=== PATIENT | female | born 1975 | race Caucasian/White ===

== ENCOUNTER 2020-07-31 12:23 | Inpatient (IN) | payer BC, SELFPAY ==
--- NOTE | 2020-07-30 21:20 | PC.NURSE ---
This patient, Wendy Lewis, was admitted to Medical Room 246-01. Patient/family oriented to hospital policies and general routines including ID bracelet, bed and alarms, visiting hours, pain management, procedures, bathroom and other care routines, personal items, smoking policy, room service/diet, and visiting hours. Information on how to activate the Rapid Response Team has been discussed. Patient/Family are encouraged to report perceived risks to care and to ask questions if they do not understand what they are told or what they should do.
[2020-07-30 21:58] VITALS: BMI 23.9
[2020-07-30 22:00] VITALS: BP 114/54; PULSE 88; RESP 16; TEMP 37; O2SAT 97
[2020-07-30] MEDS: IBUPROFEN 600 MG TABLET PO (22:28)
[2020-07-30] MEDS: ONDANSETRON HCL ODT 4 MG TABLET PO (22:31)
[2020-07-30 22:46] LABS: Basophils Absolute Auto 0.1 K/mm3 (0.0-0.1); Basophils Percent Auto 0.3 % (0.2-1.2); Eosinophils Absolute Auto 0.1 K/mm3 (0-0.3); Eosinophils Percent Auto 0.8 % (0-4.4); Hematocrit 33.4 % (37.0-47.0); Hemoglobin 11.2 g/dL (12.0-15.0); Immature Granulocyte Absolute 0.13 K/mm3 (0.00-0.031); Immature Granulocyte Percent A 0.8 % (0-0.5); Lymphocytes Absolute Auto 1.04 K/mm3 (0.9-3.2); Lymphocytes Percent Auto 6.8 % (18.3-44.2); Mean Corpuscular HGB Conc 33.5 g/dl (32-36); Mean Corpuscular Volume 92.5 fl (80-100); Mean Platelet Volume 10.3 fl (7.4-10.4); Monocytes Absolute Auto 1.2 K/mm3 (0.1-0.6); Monocytes Percent Auto 7.6 % (2.6-8.5); Neutrophils Absolute Auto 12.9 K/mm3 (1.3-6.7); Neutrophils Percent Auto 83.7 % (45.5-73.1); Platelet Count Result 303 k/mm3 (150-375); Red Blood Count 3.61 M/mm3 (4.2-5.4); Red Cell Distribution Width 12.9 % (11.5-14.5); White Blood Count 15.4 K/mm3 (4.5-10.0)
[2020-07-30 22:57] LABS: Anion Gap 8 mmol/L (8-16); Blood Urea Nitrogen 5 mg/dL (7-17); Calcium 8.1 mg/dL (8.4-10.2); Carbon Dioxide 30 mmol/L (22-30); Chloride 98 mmol/L (98-107); Estimated CRCL calculation 118 ml/min; Estimated Glomerular Filt Rate > 60; Glucose 109 mg/dL (65-105); INR 1.3; Potassium 2.9 mmol/L (3.4-5.0); Prothrombin Time 16.4 Seconds (11.1-14.7); Sodium 136 mmol/L (137-145)
[2020-07-30 22:58] LABS: Partial Thromboplastin Time 33.2 SECONDS (22.3-36.8)
[2020-07-31 06:00] VITALS: BP 94/53; PULSE 92; RESP 18; TEMP 36.9; O2SAT 97
[2020-07-31] MEDS: SIMETHICONE 80 MG TAB.CHEW PO (08:33)
[2020-07-31] MEDS: POTASSIUM CHLORIDE 20 MEQ TABLET.ER PO ×2 (08:42→16:55)
--- NOTE | 2020-07-31 12:06 | PM.IMHP ---
H&P: HPI History of Present Illness Date/Time: 07/31/20 12:06 Chief Complaint: Abdominal pain Narrative: Wendy Lewis is a 45 year old female s/p robotic assisted total laparoscopic hysterectomy on 07/23 at [facility]. Patient reported fevers, abdominal pain, and constipation. US was done on outpatient basis which showed a 8cm hemoatoma. Patient was placed on PO flagyl and augmentin. She continued to be febrile at home and developed nausea and vomiting. She was evaluated in the [facility] ER on 07/30. CT showed 8x8cm pelvic abscess vs hematoma. Due to no IR capabilities available at [place], she was transferred to [place] should IR intervention arise as a need in her care. She reports abdominal cramping pain that is associated with passing flatus and with bowel movements. Her bowel movements are described as small pellets. Passing flatus, but it is associated with pain. She reports that her post operative pain has resolved, and was no longer requiring pain medications at home. Nausea is slightly improved this morning. She is tolerating diet, but has decreased appetite. Review of Systems Constitutional: Constitutional: Reports fatigue and Reports lethargy Eyes: Eyes: Reports no additional eye complaints ENT: Reports system reviewed and no additional complaints, except as documented Cardiovascular: Cardiovascular: Reports no additional cardiovascular complaints Respiratory: Respiratory: Reports no additional respiratory complaints Gastrointestinal: Gastrointestinal: Reports as per HPI Genitourinary: Genitourinary: Reports no additional female genitourinary complaints Musculoskeletal: Musculoskeletal: Reports no additional musculoskeletal complaints Integumentary/Breasts: Skin/Breast: Reports system reviewed and no additional complaints, except as docu Neurologic: Reports system reviewed and no additional complaints, except as documented Psychiatric: Psychiatric: Reports no additional psychiatric complaints Endocrine: Endocrine: Reports no additional endocrine complaints Hematologic/Lymphatic: Hematologic/Lymphatic: Reports no additional hematologic/lymphatic complaints Allergic/Immunologic: Allergic/Immunologic: Reports no additional allergic/immunologic complaints [facility] Past Medical History Medical History (Updated 07/31/20 @ 12:20 by Marleny Doll DO) Mild intermittent asthma Surgical History Surgical History (Updated 07/31/20 @ 12:15 by Marleny Doll DO) H/O: hysterectomy History of 3 sections History of cholecystectomy Family History Family History (Updated 07/30/20 @ 21:52 by Brenda M. Hoffner, RN) Grandparent Chronic obstructive pulmonary disease Social History Social History Smoking packs per day: 1 Smoking cigarettes per day: 20.0 Years smoked: 20 Smoking pack-years: 20.00 Smoking status: Former smoker Tobacco type: cigarettes Alcohol intake: current Substance use: never Spiritual care concerns: No Meds Home Medications and Allergies Home Medications Medication Instructions Recorded Confirmed Type amoxicillin-pot clavulanate 1 tablet PO Q12H 07/30/20 07/30/20 History metronidazole 500 mg PO BID 07/30/20 07/30/20 History Allergies Allergy/AdvReac Type Severity Reaction Status Date / Time No Known Allergies Allergy Verified 07/30/20 21:52 Vital Signs Vital Signs - 24 hr 07/30/20 22:00 07/31/20 06:00 Temperature 37.0 C 36.9 C Pulse Rate 88 92 Respiratory Rate 16 18 Blood Pressure 114/54 L 94/53 L Pulse Oximetry 97 97 Exam Const: General: cooperative, no acute distress, well developed, alert, awake, Physically active, tired appearing and uncomfortable Nutritional Appearance: average body habitus Orientation/consciousness: oriented to person, oriented to place, oriented to time and patient oriented x3 HENMT: Head: normocephalic and atraumatic Eyes: General: appearance normal, both eyes and all related structure
--- NOTE | 2020-07-31 12:22 | WPDHPUPDATE1 ---
History and Physical Update Update Date/Time: 07/31/20 12:22 History and Physical has been reviewed, including an updated exam of the patient. There are NO changes in the patient's condition. Risks, benefits, and alternatives have been discussed and questions answered. Patient agrees to proceed with procedure.
--- OUTSIDE RECORDS SUMMARY | 2020-07-31 12:33 | XMS_ITS ---
:1975 Author Care Team Providers Name Role Phone KATHY KELLEY Primary Care Provider [phone] Allergies Code Code System Name Reaction Severity Status Onset NKDA ? Medications Name Status Start Date Stop Date ? ? albuterol sulfate HFA 90 mcg/actuation Active ? Not available aerosol inhaler amoxicillin 500 mg capsule Completed ? 05/07 Augmentin 875 mg-125 mg tablet Active ? N ot available Take 1 tablet every 12 hours by oral route for 10 days. azithromycin 250 mg tablet Completed ? 01/19 benzonatate 100 mg capsule Completed ? 05/07 Ciprodex 0.3 %-0.1 % ear drops,suspension Completed ? 05/18/2017 INSTILL 4 DROPS IN BOTH EARS BID. SHAKE WELL BEFORE USING cyclobenzaprine 5 mg tablet Completed ? 09/2019 Dulcolax (bisacodyl) 10 mg rectal suppository Active ? Not available Insert 1 suppository every day by rectal route as needed for 7 days. Flagyl 500 mg tablet Active ? Not availab le Take 1 tablet twice a day by oral route for 10 days. fluticasone propionate 50 mcg/actuation nasal spray,suspension C ompleted ? 05/18/2017 INHALE 2 SPRAYS IN EACH NOSTRIL ONCE DAILY ibuprofen 600 mg tablet Completed ? 05/08/20 20 Macrobid 100 mg capsule Active ? Not avai lable Take 1 capsule every 12 hours by oral route for 7 days. medroxyprogesterone 5 mg tablet Completed ? 05/08/2020 TAKE 1 TABLET BY MOUTH EVERY DAY metaxalone 800 mg tablet Completed ? 020 Take 1 tablet 3 times a day by oral route as needed.
--- OUTSIDE RECORDS SUMMARY | 2020-07-31 12:33 | XMS_ITS | Encounter Summary ---
:1975 Author Care Team Providers Name Role Phone Devan Mclean Lashae Primary Care Provider [phone] Reason for Visit well woman exam wwe/ no pap/ss Assessment and Plan 1. Gynecologic examination 2. Lump in left breast ? MAMMO, diagnostic, digital , bilateral - left breast lump on exam ? US, breast, unilateral Discussion Note: None recorded.Patient educational handouts: No information available. Plan of Care Reminders Provider Appointments Post Op 08/10/2020 Josemanuel Echavarria, 1:50PM MD ? Mine Surveyor [facility] on or around Josemanuel Echavarria, 07/07/2021 MD Lab None ? ? recorded. Referral None ? ? recorded. Procedures None ? ? recorded. Surgeries None ? ? recorded. Imaging MAMMO, 07/07/2020 [facility] [facility], Digital, [facility] (One Call Scheduling) ? US, Breast, 07/07/2020 [place] [facility] ([facility] Call Scheduling) Medications Name Start Date ? ? albu
--- OUTSIDE RECORDS SUMMARY | 2020-07-31 12:33 | XMS_ITS | Encounter Summary ---
:1975 Author Care Team Providers Name Role Phone Devan Bhardwaj Primary Care Provider [phone] Reason for Visit POST-OP 2 weeks post op 04/23/2020 Ablation/ ss Assessment and Plan 1. Postoperative care Discussion Note: None recorded.Patient educational handouts: No information available. Plan of Care Reminders Provider Appointments Post Op 08/10/2020 Josemanuel Echavarria, 1:50PM MD ? Manager Hospice [facility] on or around Josemanuel Echavarria, 07/07/2021 Lab None ? ? recorded. Referral None ? ? recorded. Procedures None ? ? recorded. Surgeries None ? ? recorded. Imaging None ? ? recorded. Medications Name Start Date ? ? albuterol sulfate HFA 90 mcg/actuation aerosol inhaler ? Augmentin 875 mg-125 mg tablet ? Take 1 tablet every 12 hours by oral route for 10 day s. Dulcolax (bisacodyl) 10 mg rectal suppository ? Insert 1 suppository every day by rectal route as nee ded for 7 days. Flagyl 500 mg tablet ? Take 1 tablet twice a day by oral route for 10 days. Macrobid 100 mg capsule ? Take 1 capsule every 12 hours by oral route for 7 day s. Medications Administered None recorded. Vitals Height Weight BMI Blood Pressure 5 ft 3 in 145 lbs 25.7 kg/m2 110/62 mm[Hg] Results
--- OUTSIDE RECORDS SUMMARY | 2020-07-31 12:33 | XMS_ITS ---
:1975 Author Care Team Providers Name Role Phone [facility] Primary Care Provider Unavailable Allergies None recorded. Medications Name Status Start Date Stop Date ? ? albuterol sulfate HFA 90 mcg/actuation Active ? Not available aerosol inhaler azithromycin 250 mg tablet Active ? Not a vailable benzonatate 100 mg capsule Active ? Not a vailable cyclobenzaprine 5 mg tablet Active ? Not available medroxyprogesterone 5 mg tablet Active ? Not available oxycodone-acetaminophen 5 mg-325 mg tablet Active ? Not available promethazine 6.25 mg/5 mL oral syrup Active ? Not available Problems None recorded. Procedures None recorded. Results Lab Results Date Name Specimen Result Interpretation Description Value Range Status Address ? 02/10/2020 COVID-19 RNA ? Sars - negative mL ? F inal [place] (SARS-CoV-2), QL, Cov - 2 Regional edge setter-PCR, PCR (Lab): [address], Specimen [place] ? ? ? Covidc ? ? Final [facility] (Lab): [address], [place] ? ? ? Covidc ? ? Final [facility] (Lab): [address],
--- OUTSIDE RECORDS SUMMARY | 2020-07-31 12:33 | XMS_ITS | Encounter Summary ---
:1975 Author Care Team Providers Name Role Phone Devan Bhardwaj Primary Care Provider [phone] Reason for Visit POST-OP 2 weeks post op 04/23/2020 Ablation/ ss Assessment and Plan 1. Postoperative care Discussion Note: None recorded.Patient educational handouts: No information available. Plan of Care Reminders Provider Appointments Post Op 08/10/2020 Josemanuel Echavarria, 1:50PM MD ? Inside Sales Manager [facility] on or around Josemanuel Echavarria, 07/07/2021 [...]
--- OUTSIDE RECORDS SUMMARY | 2020-07-31 12:33 | XMS_ITS | Encounter Summary ---
:1975 Author Care Team Providers Name Role Phone Devan Mclean Lashae Primary Care Provider [phone] Reason for Visit rn gyn problem ablation done on 05/08/2020 cycle is hea vier then last month with clots , severe cramping / ss Assessment and Plan 1. Uterine leiomyoma ? total laparoscopic hystere ctomy, robotic assisted (SURG) Discussion Note Will attempt to precert hysterectom y. Also discussed possible open/bladder issues due to prior section x3. Patient educational handouts: No information available. Plan of Care Reminders Provider Appointments Post Op 08/10/2020 Josemanuel 1:50PM MD [place] ? Pinsetter Mechanic Helper [facility] on or around Josemanuel 07/07/2021 MD [place] Lab None recorded. ? ? Referral None recorded. ? ? Procedures None recorded. ? ? Surgeries Total 07/23/2020 [place] [facility] Hysterectomy, Robotic Ctr (Pre-S creen) Assisted (SURG) Imaging None recorded. ? ? Medications Name Start Date ? ? albuterol sulfate HFA 90 mcg/actuation aerosol inhaler ? Augmentin 875 mg-125 mg tablet ? Take 1 tablet every 12 hours by oral route for 10 day s.
--- OUTSIDE RECORDS SUMMARY | 2020-07-31 12:33 | XMS_ITS ---
:1975 Author Care Team Providers Name Role Phone KATHY KELLEY Primary Care Provider [phone] Allergies Code Code System Name Reaction Severity [...]
--- OUTSIDE RECORDS SUMMARY | 2020-07-31 12:33 | XMS_ITS | Encounter Summary ---
:1975 Author Care Team Providers Name Role Phone Devan Mclean Lashae Primary Care Provider [phone] Reason for Visit well woman exam wwe/ no pap/ss Assessment and Plan 1. Gynecologic examination 2. Lump in left breast ? MAMMO, diagnostic, digital , bilateral - left breast lump on exam ? US, breast, unilateral Discussion Note: None recorded.Patient educational handouts: No information available. Plan of Care Reminders Provider Appointments Post Op 08/10/2020 Josemanuel Echavarria, 1:50PM MD ? [employer] Sawyer [facility] on or around Josemanuel Echavarria, 07/07/2021 MD Lab None ? ? recorded. Referral None ? ? recorded. Procedures None ? ? recorded. Surgeries None ? ? recorded. Imaging MAMMO, 07/07/2020 [facility] [facility], Digital, [facility] (One Call Scheduling) ? US, Breast, 07/07/2020 [place] [facility] ([facility] Call Scheduling) Medications Name Start Date ? ? albu
--- OUTSIDE RECORDS SUMMARY | 2020-07-31 12:33 | XMS_ITS | Encounter Summary ---
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 Certified Master Safe Technician [facility] on or around Josemanuel 07/07/2021 MD [place] Lab None recorded. ? ? Referral None recorded. ? ? Procedures None recorded. ? ? Surgeries Total 07/23/2020 [place] [facility] Hysterectomy, Robotic Ctr (Pre-S creen) Assisted (SURG) Imaging None recorded. ? ? Medications Name Start Date ? ? albuterol sulfate HFA 90 mcg/actuation aerosol inhaler ? Augmentin 875 mg-125 mg tablet ? Take 1 tablet every 12 hours by oral route for 10 day s.
--- OUTSIDE RECORDS SUMMARY | 2020-07-31 12:33 | XMS_ITS ---
[...] [place] (SARS-CoV-2), QL, Cov - 2 [facility] algebra teacher-PCR, PCR (Lab): [address], [place]imen [place] ? ? ? Covidc ? ? Final [facility] (Lab): [address], [place] ? ? ? Covidc ? ? Final [facility] (Lab): [address],
[2020-07-31] MEDS: DOCUSATE SODIUM 100 MG CAPSULE PO ×2 (13:05→20:15)
[2020-07-31 14:42] VITALS: BP 112/53; PULSE 93; RESP 20; TEMP 37.1; O2SAT 98
[2020-07-31] MEDS: IBUPROFEN 600 MG TABLET PO (16:54)
[2020-07-31 20:00] VITALS: BP 97/47; PULSE 82; RESP 18; TEMP 36.9; O2SAT 98
[2020-08-01 04:00] VITALS: BP 96/54; PULSE 93; RESP 20; TEMP 37; O2SAT 98
[2020-08-01 05:15] LABS: Basophils Absolute Auto 0.1 K/mm3 (0.0-0.1); Basophils Percent Auto 0.4 % (0.2-1.2); Eosinophils Absolute Auto 0.3 K/mm3 (0-0.3); Eosinophils Percent Auto 1.6 % (0-4.4); Hematocrit 32.6 % (37.0-47.0); Hemoglobin 10.9 g/dL (12.0-15.0); Immature Granulocyte Absolute 0.19 K/mm3 (0.00-0.031); Immature Granulocyte Percent A 1.1 % (0-0.5); Lymphocytes Percent Auto 6.9 % (18.3-44.2); Mean Corpuscular HGB Conc 33.4 g/dl (32-36); Mean Corpuscular Hemoglobin 30.4 pg (26-34); Mean Corpuscular Volume 90.8 fl (80-100); Mean Platelet Volume 10.2 fl (7.4-10.4); Monocytes Percent Auto 5.9 % (2.6-8.5); Neutrophils Absolute Auto 14.6 K/mm3 (1.3-6.7); Neutrophils Percent Auto 84.1 % (45.5-73.1); Platelet Count Result 323 k/mm3 (150-375); Red Blood Count 3.59 M/mm3 (4.2-5.4); Red Cell Distribution Width 12.9 % (11.5-14.5); White Blood Count 17.4 K/mm3 (4.5-10.0)
[2020-08-01 05:33] LABS: Anion Gap 9 mmol/L (8-16); Blood Urea Nitrogen 5 mg/dL (7-17); Calcium 8.2 mg/dL (8.4-10.2); Carbon Dioxide 27 mmol/L (22-30); Chloride 99 mmol/L (98-107); Estimated CRCL calculation 118 ml/min; Estimated Glomerular Filt Rate > 60; Glucose 122 mg/dL (65-105); Sodium 135 mmol/L (137-145)
[2020-08-01] MEDS: IBUPROFEN 600 MG TABLET PO ×2 (05:51→16:27)
--- NOTE | 2020-08-01 08:57 | PM.GYNPNOP ---
PRODUCTION REPRODUCTION MANAGER - A/P Assessment and plan (1) Abscess, intra-abdominal, postoperative: Code(s): T81.43XA - Infection following a procedure, organ and space surgical site, initial encounter Status: Acute Assessment and Plan: Continue Zosyn Outside CT to be scanned into EMR Patient is clinically improved today, significant change from yesterday. If she continues to be stable/improve, then can consider discharge tomorrow on PO antibiotics. Possible IR drainage on Monday if condition worsens (2) Constipation: Code(s): K59.00 - Constipation, unspecified Status: Acute Assessment and Plan: Improved today Stool softener, suppository, and enema PRN (3) Hypokalemia: Code(s): E87.6 - Hypokalemia Status: Acute Assessment and Plan: Replete wit KCl PO. Tolerating regular diet. Is no longer nauseous and is able to tolerate a more substantial diet. Time Spent With Patient Time: Total time spent is greater than 50% in coordination of care (as documented) at patient's floor/unit and/or counseling patient: Time with patient: 15 - 25 minutes PRODUCTION REPRODUCTION MANAGER- PN:Subj Post-Op Subjective Date/time seen: 08/01/20 08:57 Patient reports feeling much better today. She states that she has had some small bowel movements, the pain she was having with the bowel movements is now improved/resolved. She is no longer nauseous and is able to eat more substantial food. Drinking plenty of fluids. No complaints this morning. Exam Const: General: cooperative, healthy appearing, comfortable, no acute distress, well developed, alert, awake and Physically active Nutritional Appearance: average body habitus Orientation/consciousness: oriented to person, oriented to place, oriented to time and patient oriented x3 HENMT: Head: normocephalic and atraumatic Eyes: General: appearance normal, both eyes and all related structures Resp: Effort & Inspection: normal respiratory effort, able to speak in complete sentences and audible wheezes Cardio: Rhythm: regular rhythm GI: Inspection: normal to inspection GI Palp: No abdominal tenderness and Yes Soft to palpation : General: Yes deferred Skin: General skin exam: normal color Neuro: General: oriented to person, oriented to place, oriented to time and patient oriented x3 Cognition (Neuro): normal cognition Speech: normal speech Extrem: General: normal to inspection Psych: Appearance: grossly normal Mental Status: mental status grossly normal Speech and movement: Normal speech and movement present Affect: normal affect Attitude: cooperative Thought process: Normal thought process present Insight: Good insight present (Psych) Judgement: Good judgement present (Psych) PRODUCTION REPRODUCTION MANAGER - PN: Obj Data Vital Signs Vital Signs: Vital Signs - 24 hr 07/31/20 14:42 07/31/20 20:00 08/01/20 04:00 Temperature 37.1 C 36.9 C 37.0 C Pulse Rate 93 82 93 Respiratory Rate 18 20 Blood Pressure 112/53 L 97/47 L 96/54 L Pulse Oximetry 98 98 98 Intake/Output Intake/Output: Intake & Output 07/29/20 07/30/20 07/31/20 08/01/20 23:59 23:59 23:59 23:59 Intake Total 2390 1560 Output Total 2600 950 Balance -210 610 Meds/Results Medications: Active Medications Generic Name Dose Route Start Last Admin Trade Name Freq PRN Reason Stop Dose Admin Acetaminophen 650 mg 07/30/20 22:11 Acetaminophen 325 Mg Tablet PO Q6H PRN Fever Hydrocodone Bitart/Acetaminophen 1 tab 07/30/20 22:05 Hydrocodone/Acetaminophen (*Crx) 5-325 Mg Tablet PO Q6H PRN Pain Rated 6 or Greater Bisacodyl 10 mg 07/31/20 10:48 Bisacodyl 10 Mg Suppository RECTAL DAILY PRN Constipation Docusate Sodium 100 mg 07/31/20 09:00 07/31/20 20:15 Docusate Sodium 100 Mg Capsule PO 100 mg Q12HR BELKYS Administration Piperacillin/Tazobactam/Dextrose 3.375 gm in 50 mls @ 100 mls/hr 07/31/20 06:00 08/01/20 06:17 Zosyn 3.375 Gm/D5w 50ml Pm IVPB Infused Q6H BELKYS
[2020-08-01] MEDS: DOCUSATE SODIUM 100 MG CAPSULE PO (10:07)
[2020-08-01] MEDS: POTASSIUM CHLORIDE 20 MEQ TABLET.ER PO ×2 (10:07→16:28)
[2020-08-01] MEDS: POTASSIUM CHLORIDE 20 MEQ TABLET PO (10:07)
[2020-08-01 14:00] VITALS: BP 110/56; PULSE 98; RESP 16; TEMP 37.2; O2SAT 100
[2020-08-01 20:00] VITALS: BP 107/51; PULSE 89; RESP 18; TEMP 36.7; O2SAT 97
[2020-08-02 04:00] VITALS: BP 109/54; PULSE 103; RESP 18; TEMP 36.8; O2SAT 100
[2020-08-02] MEDS: IBUPROFEN 600 MG TABLET PO (05:52)
[2020-08-02] MEDS: POTASSIUM CHLORIDE 20 MEQ TABLET.ER PO (08:21)
[2020-08-02 08:41] LABS: Basophils Percent Auto 0.2 % (0.2-1.2); Eosinophils Absolute Auto 0.2 K/mm3 (0-0.3); Eosinophils Percent Auto 0.9 % (0-4.4); Hematocrit 31.3 % (37.0-47.0); Hemoglobin 10.6 g/dL (12.0-15.0); Immature Granulocyte Absolute 0.13 K/mm3 (0.00-0.031); Immature Granulocyte Percent A 0.7 % (0-0.5); Lymphocytes Absolute Auto 1.19 K/mm3 (0.9-3.2); Lymphocytes Percent Auto 6.1 % (18.3-44.2); Mean Corpuscular HGB Conc 33.9 g/dl (32-36); Mean Corpuscular Hemoglobin 30.5 pg (26-34); Mean Corpuscular Volume 89.9 fl (80-100); Mean Platelet Volume 10.4 fl (7.4-10.4); Monocytes Absolute Auto 0.9 K/mm3 (0.1-0.6); Monocytes Percent Auto 4.4 % (2.6-8.5); Neutrophils Absolute Auto 17.2 K/mm3 (1.3-6.7); Neutrophils Percent Auto 87.7 % (45.5-73.1); Platelet Count Result 330 k/mm3 (150-375); Red Blood Count 3.48 M/mm3 (4.2-5.4); Red Cell Distribution Width 13.1 % (11.5-14.5); White Blood Count 19.6 K/mm3 (4.5-10.0)
--- NOTE | 2020-08-02 08:58 | PM.GYNPNOP ---
PLATER HOT DIP - A/P Assessment and plan (1) Abscess, intra-abdominal, postoperative: Code(s): T81.43XA - Infection following a procedure, organ and space surgical site, initial encounter Status: Acute Assessment and Plan: Patient is clinically improved. Leukocytosis present, consistent with infectious/inflammatory process. Pain resolved. Can discharge today continue outpatient management with PO antibiotics. Clinic follow up scheduled for Aug 10. (2) Constipation: Code(s): K59.00 - Constipation, unspecified Status: Resolved Assessment and Plan: Resolved (3) Hypokalemia: Code(s): E87.6 - Hypokalemia Status: Acute Assessment and Plan: Repleted. Tolerating diet. Trending back to normal range Time Spent With Patient Time: Total time spent is greater than 50% in coordination of care (as documented) at patient's floor/unit and/or counseling patient: Time with patient: 15 - 25 minutes PLATER HOT DIP- PN:Subj Post-Op Subjective Date/time seen: 08/02/20 08:58 Patient states she is feeling better. No issues/complaints over the past 24 hours. Bowel movements are returning back towards normal. Pain is resolved. Tolerating diet without nausea/vomiting. Ambulating. Exam Const: General: cooperative, healthy appearing, comfortable, no acute distress, well developed, alert, awake and Physically active Nutritional Appearance: average body habitus Orientation/consciousness: oriented to person, oriented to place, oriented to time and patient oriented x3 HENMT: Head: normocephalic and atraumatic Eyes: General: appearance normal, both eyes and all related structures Resp: Effort & Inspection: normal respiratory effort, able to speak in complete sentences and audible wheezes Cardio: Rhythm: regular rhythm GI: Inspection: normal to inspection : General: Yes deferred Skin: General skin exam: normal color Neuro: General: oriented to person, oriented to place, oriented to time and patient oriented x3 Cognition (Neuro): normal cognition Speech: normal speech Extrem: General: normal to inspection Psych: Appearance: grossly normal Mental Status: mental status grossly normal Speech and movement: Normal speech and movement present Affect: normal affect Attitude: cooperative Thought process: Normal thought process present Insight: Good insight present (Psych) Judgement: Good judgement present (Psych) PLATER HOT DIP - PN: Obj Data Vital Signs Vital Signs: Vital Signs - 24 hr 08/01/20 14:00 08/01/20 20:00 08/02/20 04:00 Temperature 37.2 C 36.7 C 36.8 C Pulse Rate 98 89 103 H Respiratory Rate 16 18 18 Blood Pressure 110/56 L 107/51 L 109/54 L Pulse Oximetry 100 97 100 Intake/Output Intake/Output: Intake & Output 07/30/20 07/31/20 08/01/20 08/02/20 23:59 23:59 23:59 23:59 Intake Total 2390 2940 500 Output Total 2600 2050 1000 Balance -210 890 -500 Meds/Results Medications: Active Medications Generic Name Dose Route Start Last Admin Trade Name Freq PRN Reason Stop Dose Admin Acetaminophen 650 mg 07/30/20 22:11 Acetaminophen 325 Mg Tablet PO Q6H PRN Fever Hydrocodone Bitart/Acetaminophen 1 tab 07/30/20 22:05 Hydrocodone/Acetaminophen (*Crx) 5-325 Mg Tablet PO Q6H PRN Pain Rated 6 or Greater Bisacodyl 10 mg 07/31/20 10:48 Bisacodyl 10 Mg Suppository RECTAL DAILY PRN Constipation Docusate Sodium 100 mg 07/31/20 09:00 08/02/20 08:21 Docusate Sodium 100 Mg Capsule PO Not Given Q12HR BELKYS Piperacillin/Tazobactam/Dextrose 3.375 gm in 50 mls @ 100 mls/hr 07/31/20 06:00 08/02/20 06:21 Zosyn 3.375 Gm/D5w 50ml Pm IVPB Infused Q6H BELKYS Infusion Ibuprofen 600 mg 07/30/20 22:05 08/02/20 05:52 Ibuprofen 600 Mg Tablet PO 600 mg Q6H PRN Administration Pain Rated 5 or Less Ondansetron HCl 4 mg 07/30/20 22:05 Ondansetron Inj 4 Mg/2 Ml Vial IV PUSH Q6H PRN Nausea And Vomiting Ondansetron H
[2020-08-02 09:10] LABS: Anion Gap 8 mmol/L (8-16); Blood Urea Nitrogen 5 mg/dL (7-17); Calcium 8.4 mg/dL (8.4-10.2); Carbon Dioxide 28 mmol/L (22-30); Chloride 98 mmol/L (98-107); Estimated CRCL calculation 118 ml/min; Estimated Glomerular Filt Rate > 60; Glucose 210 mg/dL (65-105); Potassium 3.2 mmol/L (3.4-5.0); Sodium 134 mmol/L (137-145)
--- NOTE | 2020-08-02 09:19 | PM.DS ---
DS: Admitting Diagnosis Admitting Diagnosis Admitting Diagnosis: Post operative pelvic abscess DS: Discharge Diagnosis Discharge Diagnosis (1) Abscess, intra-abdominal, postoperative: Code(s): T81.43XA - Infection following a procedure, organ and space surgical site, initial encounter Status: Acute Assessment and Plan: Patient is clinically improved. Leukocytosis present, consistent with infectious/inflammatory process. Pain resolved. Can discharge today continue outpatient management with PO antibiotics. Clinic follow up scheduled for Aug 10. (2) Constipation: Qualifiers: Constipation type: unspecified constipation type Qualified Code(s): K59.00 - Constipation, unspecified Code(s): K59.00 - Constipation, unspecified Status: Resolved Assessment and Plan: Resolved (3) Hypokalemia: Code(s): E87.6 - Hypokalemia Status: Acute Assessment and Plan: Repleted. Tolerating diet. Trending back to normal range DS: Summary Hospital Course Reason for hospitalization: Pot operative pelvic abscess Hospital Course: Admitted for post operative pelvic abscess, was unable to tolerate outpatient treatment and had bouts of nausea, vomiting, constipation, and low grade fevers. Once admitted, she was started on IV antibiotics and bowel regimen. Potassium was repleted. Patient showed significant improvement from HD#1 to HD#2. Bowel movements returning to normal, no longer constipated. Nausea resolved and tolerating regular diet. Leukocytosis still present, but patient is clinically improved and can continue outpatient management with PO antibiotics. Status at Discharge Functional status at discharge: independent ambulation Overall status at discharge: patient is progressing back to baseline Time Spent with Patient Time attestation: Total time spent providing and/or coordinating discharge services: Time spent: Less than 30 minutes Exam Const: General: cooperative, healthy appearing, comfortable, no acute distress, well developed, alert, awake and Physically active Nutritional Appearance: average body habitus Orientation/consciousness: oriented to person, oriented to place, oriented to time and patient oriented x3 HENMT: Head: normocephalic and atraumatic Eyes: General: appearance normal, both eyes and all related structures Resp: Effort & Inspection: normal respiratory effort, able to speak in complete sentences and audible wheezes Cardio: Rhythm: regular rhythm GI: Inspection: normal to inspection : General: Yes deferred Skin: General skin exam: normal color Neuro: General: oriented to person, oriented to place, oriented to time and patient oriented x3 Cognition (Neuro): normal cognition Speech: normal speech Extrem: General: normal to inspection Psych: Appearance: grossly normal Mental Status: mental status grossly normal Speech and movement: Normal speech and movement present Affect: normal affect Attitude: cooperative Thought process: Normal thought process present Insight: Good insight present (Psych) Judgement: Good judgement present (Psych) DS: Data Data Completed and Pending Labs on day of discharge: Labs from last 24 hours 08/02/20 08/02/20 08:09 08:09 WBC 19.6 H RBC 3.48 L Hgb 10.6 L Hct 31.3 L MCV 89.9 MCH 30.5 MCHC 33.9 RDW 13.1 Plt Count 330 MPV 10.4 Immature Gran % (Auto) 0.7 H Neut % (Auto) 87.7 H Lymph % (Auto) 6.1 L Calvert % (Auto) 4.4 Eos % (Auto) 0.9 Baso % (Auto) 0.2 Lymph # (Auto) 1.19 Calvert # (Auto) 0.9 H Eos # (Auto) 0.2 Baso # (Auto) 0.0 Abs Immat Gran (auto) 0.13 H Absolute Neuts (auto) 17.2 H Absolute Nucleated RBC 0.0 Nucleated RBC % 0.0 Sodium 134 L Potassium 3.2 L Chloride 98 Carbon Dioxide 28 Anion Gap 8 BUN 5 L Creatinine 0.40 L Estim Creat Clear Calc 118 Estimated GFR > 60 Glucose 210 H Calcium 8.4 Discharge Plan Discharge A
== END 2020-08-02 10:10 | disposition home or self-care (01) | DRG 863 ==
PROVIDERS: Admitting Provider Obstetrics & Gynecology; PCP Family Medicine; Visit Provider Obstetrics & Gynecology
DX: T81.43XA Infection following a procedure, organ and space surgical site, initial encounter (principal); K59.00 Constipation, unspecified; E87.6 Hypokalemia; J45.20 Mild intermittent asthma, uncomplicated; Z90.49 Acquired absence of other specified parts of digestive tract; Z90.710 Acquired absence of both cervix and uterus; Z87.891 Personal history of nicotine dependence
CPT/HCPCS: 36415; 80048; 85025; 85610; 85730; A9270; J2543

== ENCOUNTER 2021-08-10 16:10 | Emergency (ER) | payer BC, SELFPAY ==
[2021-08-10 16:17] VITALS: BP 130/83; PULSE 82; RESP 16; TEMP 37.2; O2SAT 99
--- NOTE | 2021-08-10 16:33 | ED.URI ---
HPI - URI/Sore Throat General Chief Complaint: Upper Respiratory Infection Stated Complaint: Cough, runny nose, fever Time Seen by Provider: 08/10/21 16:33 Source: patient and RN notes reviewed Mode of arrival: ambulatory Limitations: no limitations History of Present Illness HPI Narrative: 46-year-old female with history of asthma presents with concern for headache, cough, shortness of breath, body aches reports she has been vaccinated for Covid last spring. Reports her albuterol inhaler is empty. MD elicited complaint: fever and cough Related Data Allergies Allergy/AdvReac Type Severity Reaction Status Date / Time No Known Allergies Allergy Verified 08/10/21 16:29 Review of Systems Review of Systems: CONSTITUTIONAL: Denies malaise, fever. Denies chills, sweats, or fever. EYES: Denies visual changes, redness, or discharge. ENT: Reports rhinorrhea, congestion, sinus pain, otalgia and sore throat. CARDIOVASCULAR: Denies chest pain, palpitations, or edema. RESPIRATORY: Reports cough. Denies dyspnea. GASTROINTESTINAL: Denies abdominal pain, nausea, vomiting, diarrhea SKIN: Denies rash or itching. MUSCULOSKELETAL: Denies myalgia. NEUROLOGIC: Denies headache. All systems reviewed & are unremarkable except as noted in HPI and below PMFSH Past Medical History Medical History (Updated 08/10/21 @ 16:43 by Tnoja Penny NP) Mild intermittent asthma Surgical History Surgical History (Updated 07/31/20 @ 12:15 by Marleny Doll DO) H/O: hysterectomy History of 3 sections History of cholecystectomy Family History Family History (Updated 07/30/20 @ 21:52 by Brenda Greer RN) Grandparent Chronic obstructive pulmonary disease Social History Social History Smoking packs per day: 1 Smoking cigarettes per day: 20.0 Years smoked: 20 Smoking pack-years: 20.00 Smoking status: Former smoker Tobacco type: cigarettes Alcohol intake: current Substance use: never Spiritual care concerns: No Comments At time of signature, agree with nursing past medical, surgical, social and family history. There is no relevant family history pertinent to the presenting complaint Exam Narrative: GENERAL: Well-appearing, well-nourished, and in no acute distress. HEAD: Normocephalic EYES: PERRLA, conjunctivae clear ENT: Nares clear, clear discharge. Mucous membranes moist. TM pearly faulkner with dull light reflex bilaterally; no tragal tenderness. Oropharynx not erythematous without lesions. Tonsils not enlarged and without exudate, no drooling, no hoarseness, no trismus, uvula midline. NECK: Supple. No lymphadenopathy CHEST: Clear to auscultation, breath sounds equal. No wheezing, rhonchi, rales, or stridor. No respiratory distress, speaks in full sentences. HEART: Regular rate and rhythm. No murmur heard. SKIN: Warm, dry, no rash. NEURO: Alert and oriented x3. PSYCH: Normal mood and affect Course Course Emergency Course: Patient is aware of diagnosis, understands and agrees to treatment plan. Anticipatory guidance given. Patient agrees to follow-up as directed and is aware of reasons to seek care at the emergency department. Portions of this record may have been created with voice recognition software Level of Care: Express Care Visit Vital Signs Vital signs: Vital Signs Temperature 98.9 F 08/10/21 16:17 Pulse Rate 82 08/10/21 16:17 Respiratory Rate 16 08/10/21 16:17 Blood Pressure 130/83 08/10/21 16:17 Pulse Oximetry 99 08/10/21 16:17 Temperature 98.9 F 08/10/21 16:17 Pulse Rate 82 08/10/21 16:17 Respiratory Rate 16 08/10/21 16:17 Blood Pressure 130/83 08/10/21 16:17 Pulse Oximetry 99 08/10/21 16:17 Reviewed. MDM - URI/Sore Throat MDM Narrative Medical decision making narrative: Differential diagnosis considered: Espinal virus, strep pharyngitis, allergic rhinitis, upper respiratory tract infection, sinusitis, rhinosinusitis, nasopharyngitis. viral pharyngitis,
[2021-08-11 14:39] LABS: SARS-CoV-2 RNA PCR Positive
== END 2021-08-10 16:47 | disposition home or self-care (01) ==
PROVIDERS: Emergency Provider Nurse Practitioner
DX: U07.1 COVID-19 (principal); J45.909 Unspecified asthma, uncomplicated; Z87.891 Personal history of nicotine dependence
CPT/HCPCS: 87426; 99213; C9803; G0463; U0003; U0005

== ENCOUNTER 2023-08-12 08:56 | Emergency (ER) | payer OTHER, SELFPAY ==
[2023-08-12 09:11] VITALS: BP 135/81; PULSE 108; RESP 18; TEMP 36.6; O2SAT 100
--- NOTE | 2023-08-12 09:22 | ED.URI ---
HPI - URI/Sore Throat General Chief Complaint: Upper Respiratory Infection Stated Complaint: Cough Time Seen by Provider: 08/12/23 09:22 Source: patient and RN notes reviewed Mode of arrival: ambulatory Limitations: no limitations History of Present Illness HPI Narrative: 48-year-old female presents with concern for cough, nasal congestion and drainage. Reports she initially had sore throat, that has improved but she continues to have bothersome cough. Reports she had some cough medicine that helps that she is almost out. Reports she took 3 doses of left over prednisone. She had a negative COVID test at home MD elicited complaint: cough Related Data Allergies Allergy/AdvReac Type Severity Reaction Status Date / Time No Known Allergies Allergy Verified 09/27/22 15:27 Review of Systems Review of Systems: CONSTITUTIONAL: Reports malaise EYES: Denies visual changes, redness, or discharge. ENT: Reports rhinorrhea, congestion. Denies sinus pain, otalgia and sore throat. CARDIOVASCULAR: Denies chest pain, palpitations, or edema. RESPIRATORY: Reports productive cough. Denies dyspnea. GASTROINTESTINAL: Denies abdominal pain, nausea, vomiting, diarrhea SKIN: Denies rash or itching. MUSCULOSKELETAL: Denies myalgia. NEUROLOGIC: Denies headache. All systems reviewed & are unremarkable except as noted in HPI and below PMFSH Past Medical History Medical History (Updated 08/12/23 @ 09:26 by Tonja Penny NP) Asthma Mild intermittent asthma Screening mammogram, encounter for Surgical History Surgical History History of 3 sections 1991, 1994, 1998 History of cholecystectomy (~2020) History of dilation and curettage (04/23/20) hscope d&c--fibroid uterus/menometrorrhagia/dysmenorrhea History of lumpectomy of left breast History of robot-assisted laparoscopic hysterectomy (07/23/20) Family History Family History Grandparent Chronic obstructive pulmonary disease Social History Social History (Updated 09/27/22 @ 15:30 by KELLY Faustin) Smoking packs per day: 1 Smoking cigarettes per day: 20.0 Years smoked: 20 Smoking pack-years: 20.00 Smoking status: Former smoker Tobacco type: cigarettes Alcohol intake: current Drinks per week: 6 Substance use: never Substance use type: does not use Living arrangements: other Additional living arrangements comments: in relationship for 18 years Occupation/Education: occupation Additional occupation/education comments: inventory control Gender identity (if verbalized by the patient): Female Sexual Orientation (if Verbalized by the Patient): Straight or Heterosexual Spiritual care concerns: No Comments At time of signature, agree with nursing past medical, surgical, social and family history. There is no relevant family history pertinent to the presenting complaint Exam Narrative: GENERAL: Nontoxic-appearing, well-nourished, and in no acute distress. HEAD: Normocephalic EYES: PERRLA, conjunctivae clear ENT: Nares clear. Mucous membranes moist. TM pearly faulkner with dull light reflex bilaterally; no tragal tenderness. Oropharynx not erythematous without lesions. Tonsils not enlarged and without exudate, no drooling, no hoarseness, no trismus, uvula midline. NECK: Supple. No lymphadenopathy CHEST: Clear to auscultation, breath sounds equal. No wheezing, rhonchi, rales, or stridor. No respiratory distress, speaks in full sentences. Cough noted HEART: Regular rate and rhythm. No murmur heard. SKIN: Warm, dry, no rash. NEURO: Alert and oriented x3. PSYCH: Normal mood and affect Course Course Emergency Course: Patient is aware of diagnosis, understands and agrees to treatment plan. Anticipatory guidance given. Patient agrees to follow-up as directed and is aware of reasons to seek care at the emergency department.
== END 2023-08-12 09:30 | disposition home or self-care (01) ==
PROVIDERS: Emergency Provider Nurse Practitioner; PCP Family Medicine
DX: J40 Bronchitis, not specified as acute or chronic (principal); J45.909 Unspecified asthma, uncomplicated; Z87.891 Personal history of nicotine dependence
CPT/HCPCS: 87804; 99213; G0463